=== PATIENT | male | born 1960 | race Caucasian/White ===

== ENCOUNTER 2022-06-01 17:28 | Emergency (ER) | payer BC ==
[~2022-06-01] VITALS: Ht 175.3 cm; Wt 181.4 kg
[2022-06-01 17:39] VITALS: BP_SYST 168
--- NOTE | 2022-06-01 19:36 | NUR ---
Patient to ER bed 8 to gown for evaluation. Side rails up. Report given to Aracelis GALINDO(reg).
--- NOTE | 2022-06-01 19:41 | NUR ---
ER at bedside examining patient.
[2022-06-01] MEDS ORDERED: KETOROLAC TROMETHAMINE 30 MG VIAL IVP ONE (19:45)
[2022-06-01 20:25] LABS: BASOPHILS # (AUTO) 0.3 K/uL (0.0-0.2); EOSINOPHILS # (AUTO) 0.3 K/uL (0.0-0.4); EOSINOPHILS % (AUTO) 2.8 % (0.0-4.0); HEMATOCRIT 46.3 % (36-54); HEMOGLOBIN 15.4 g/dL (14.0-18.0); LYMPHOCYTES % (AUTO) 10.2 % (20.5-51.5); MEAN CORPUSCULAR HEMOGLOBIN 29 pg (27-31); MEAN CORPUSCULAR HGB CONC 33 % (32-36); MEAN CORPUSCULAR VOLUME 87 fL (79.0-98.0); MONOCYTES # (AUTO) 0.7 K/uL (0.0-1.0); MONOCYTES % (AUTO) 6.9 % (1.7-9.3); NEUTROPHILS # (AUTO) 7.6 K/uL (1.8-7.7); NEUTROPHILS % (AUTO) 77.1 % (40.0-70.0); PLATELET COUNT (AUTO) 279 K/uL (130-430); RED CELL DISTRIBUTION WIDTH 14.6 % (9.0-15.0); WHITE BLOOD COUNT (AUTO) 9.9 K/uL (4.8-10.8)
--- NOTE | 2022-06-01 20:37 | NUR ---
MARCIN GALINDO PT IN BED LOCKED IN LOW POSITION, 20G IV EST TO RIGHT HAND, NO INFILTRATION NOTED. PT COMES IN WITH CC OF FLANK PAIN SECONDARY TO KIDNEY STONE HX. PT PRESENTS IN STABLE CONDITION, VSS,NAD, A&OX4, AMBULATORY.
[2022-06-01 20:39] LABS: CREATININE 1.78 mg/dL (0.55-1.30); POTASSIUM 4.8 mmol/L (3.5-5.1)
[2022-06-01 20:44] LABS: ALBUMIN 3.2 g/dL (3.4-4.8); TOTAL BILIRUBIN 0.3 mg/dL (0.0-1.0)
[2022-06-01] MEDS ORDERED: hydrALAZINE HCL 20 MG/ML VIAL IVP ONE (20:45)
[2022-06-01] MEDS ORDERED: TAMSULOSIN HCL 0.4 MG CAP PO ONE (21:45)
[2022-06-01] MEDS ORDERED: cephALEXin 500 MG CAPSULE PO ONE (21:45)
[2022-06-01] MEDS ORDERED: CEPH-548 PO (21:50)
[2022-06-01] MEDS ORDERED: TAMS0.4C96 PO (21:50)
[2022-06-01] MEDS ORDERED: IBUP-1969 PO (21:50)
[2022-06-01 22:16] LABS: BILIRUBIN,URINE NEGATIVE (NEGATIVE); BLOOD, URINE 1+ (NEGATIVE); COLOR,URINE YELLOW (YELLOW); GLUCOSE,URINE NEGATIVE (NEGATIVE); KETONES,URINE NEGATIVE (NEGATIVE); LEUKOCYTE ESTERASE ,URINE NEGATIVE (NEGATIVE); NITRITE, URINE NEGATIVE (NEGATIVE); PH,URINE 5.5 (5.0-8.0); PROTEIN URINE NEGATIVE (NEGATIVE); UROBILINOGEN,URINE 0.2 (0.2-1.0)
[2022-06-01 22:22] LABS: CLARITY/URINE SLIGHTLY HAZY (CLEAR)
[2022-06-01 22:37] LABS: BACTERIA,URINE FEW /HPF (None Seen); RBC,URINE 0-3 /HPF (0-3); WBC,URINE 0-3 /HPF (0-3)
[2022-06-01 22:38] LABS: MUCUS,URINE None Seen /LPF (None Seen)
[2022-06-01] MEDS ORDERED: TAMSULOSIN HCL 0.4 MG CAP ONE (23:08)
[2022-06-01 23:39] VITALS: BP_SYST 135
== END 2022-06-01 23:39 | disposition home or self-care (01) ==
LOC: SED 17:28
DX: N20.1 Calculus of ureter (principal); R10.9 Unspecified abdominal pain; N17.9 Acute kidney failure, unspecified; N13.30 Unspecified hydronephrosis; I10 Essential (primary) hypertension; Z79.899 Other long term (current) drug therapy
CPT/HCPCS: 99285; 74176; 96374; 80053; 81000; 85025; 87040; 36415; 76376; 83605; J1885